=== PATIENT | female | born 1975 | race Caucasian/White ===

== ENCOUNTER 2020-05-25 08:17 | Emergency (ER) | payer OTHER ==
[2020-05-25 08:23] VITALS: BP 133/74; PULSE 105; TEMP 98.4; BMI 25.7
--- NOTE | 2020-05-25 08:24 | PDOC ---
Rapid Medical Evaluation Time Seen by Provider: 05/25/20 08:19 Medical Evaluation: 05/25/20 08:23 I have performed a brief in-person evaluation of this patient. The patient presents with a chief complaint of: L ear pain x 1 week Pertinent physical exam findings:NAD I have ordered the following:nothing The patient will proceed to the ED for further evaluation. Discharge Disposition - Diagnosis Left ear pain - Referrals - Patient Instructions - Post Discharge Activity
--- NOTE | 2020-05-25 08:36 | PDOC ---
History of Present Illness - General Chief Complaint: Ear Problem Stated Complaint: LT EAR PAIN Time Seen by Provider: 05/25/20 08:19 History Source: Patient Exam Limitations: No Limitations - History of Present Illness Initial Comments: 05/25/20 08:31 Patient is a 44-year-old female with no past medical history who presents to the ED with complaint of left ear pain, left neck pain, throat and dental pain for the last 1 month. She states she also feels pressure in the frontal part of her face. She was on antibiotics that she got from the [place] for 9 days which did not help. She has been taking Tylenol and Advil which do help her pain but it just returns after the medication wears off. She denies any fevers or chills. She denies any drainage from her ear. She has been eating and drinking normally. Past History - Medical History Allergies/Adverse Reactions: Allergies Allergy/AdvReac Type Severity Reaction Status Date / Time No Known Allergies Allergy Verified 05/25/20 08:20 Home Medications: Ambulatory Orders Triamcinolone Acetonide [Nasacort] 2 spray NS DAILY #1 bottle 05/25/20 COPD: No Other medical history: DENIES - Immunization History Immunization Up to Date: No - Psycho-Social/Smoking History Smoking History: Never smoked - Substance Abuse Hx (Audit-C & DAST Scrn) How often the patient has a drink containing alcohol: Never Score: In Men: 4 or > Positive; In Women: 3 or > Positive: 0 Screen Result (Pos requires Nsg. Audit-10AR): Negative In the last yr the pt used illegal drug/Rx for NonMed reason: No Score: Yes response is considered Positive: 0 Screen Result (Positive result requires Nsg. DAST-10): Negative Review of Systems - Review of Systems Comments:: 05/25/20 08:31 - Review of Systems Able to Perform ROS?: Yes Constitutional: No: Fever, Chills, Loss of Appetite, Night Sweats, Weakness HEENTM: No:Vision changes,Throat Swelling, Mouth Pain, Difficulty Swallowing; positive: left ear pain, left neck pain, dental pain, facial pressure, throat pain Respiratory: No: Cough, Shortness of Breath, Wheezing, Sputum Production Cardiac (ROS): No: Chest Pain, Chest Tightness, Palpitations, Irregular Heart Beat, Edema ABD/GI: No: Nausea, Vomiting, Abdominal Pain, Diarrhea : No Dysuria, No Hematuria, No Frequency, No Urgency Musculoskeletal: No: Muscle Pain, Back Pain, Joint Pain, Muscle Weakness, Neck Pain Integumentary: No: Lesions, Rash Neurological: No: Headache, Numbness, Tingling, Weakness, Speech Difficulties *Physical Exam - Vital Signs Last Vital Signs Temp Pulse Resp BP Pulse Ox 98.4 F 105 H 20 133/74 100 05/25/20 08:20 05/25/20 08:20 05/25/20 08:20 05/25/20 08:20 05/25/20 08:20 - Physical Exam 05/25/20 08:32 - Physical Exam General Appearance: Nourished, Appropriately Dressed, No Distress HEENT: EOMI, Normal Voice, No Pharyngeal Erythema, No Muffled/Hoarse voice, No Tonsillar Exudate, No Tonsillar Erythema, No Nasal Congestion, No Rhinorrhea, Hearing Grossly Normal, TMs Normal, No TM Bulging, No TM Dullness, No TM Erythema; there is no evidence of otitis media bilaterally. No TM effusions appreciated. No tenderness with tapping over the frontal or maxillary sinuses. No evidence of pharyngitis. Uvula midline and without edema. Neck: Supple, No Lymphadenopathy (R), No Lymphadenopathy (L), No Rigidity, No Decreased range of motion; no tenderness to the left neck to palpation and no lymphadenopathy appreciated. Respiratory/Chest: Lungs Clear, Normal Breath Sounds. No Respiratory Distress, No Accessory Muscle Use Cardiovascular: Regular Rhythm, Regular Rate, S1, S2 Gastrointestinal/Abdominal: Normal Bowel Sounds, Soft. Non-tender, No Guarding, No Rebound, No Rigidity Musculoskeletal: Normal Inspection. No Decreased Range of Motion Extremity: Normal Capillary Refill, Normal Inspection Integumentary: Normal Color, Dry. 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 Plan: At this time we will treat the patient with a nasal spray and have her follow-up with ENT. I have made her aware that there are no overt signs of infection or lymphadenitis. She should follow-up with ENT as soon as possible for further evaluation and treatment. She understands and agrees with this treatment plan and she is stable for discharge. Discharge - Discharge Information Problems reviewed: Yes Clinical Impression/Diagnosis: Left ear pain, Sinus pressure Condition: Stable Disposition: HOME - Additional Discharge Information Prescriptions: Triamcinolone Acetonide [Nasacort] 2 spray NS DAILY #1 bottle - Follow up/Referral Referrals: Olegario Moe MD [Staff Physician] - Call tomorrow - Patient Discharge Instructions Patient Printed Discharge Instructions: DI for Sinus Headache, DI for Sinusitis, DI for Ear Pain-Adult Additional Instructions: Use the nasal spray as prescribed and try to remember to use it daily. Take Tylenol or ibuprofen for your pain. Follow-up with ENT as soon as possible for further evaluation and treatment. Use el aerosol nasal ga se lo recetaron y trate de recordar usarlo diariamente. [place] Tylenol o ibuprofeno para funes dolor. [place] un seguimiento con ENT lo antes posible para cong evaluacin y tratamiento adicionales. Print Language: IVORIAN - Post Discharge Activity
== END 2020-05-25 08:20 | disposition home or self-care (01) ==
LOC: JERFT 08:17
DX: H92.02 Otalgia, left ear (principal); J34.89 Other specified disorders of nose and nasal sinuses
CPT/HCPCS: 99282-25